=== PATIENT | female | born 1940 | race Caucasian/White ===

== ENCOUNTER 2016-06-15 15:53 | Emergency (ER) | payer BC ==
[~2016-06-15] VITALS: Wt 75.0 kg
[~2016-06-15 15:53] MED LIST: ASPI-535 PO; CARV6.25 PO; ESTR0.6256 PO; FLUTICASONE PROPIONATE NASAL; GUAI12009 PO; HYD25 PO; IBUP200C PO; LEVO88TA PO; POTA20TA96; [UNRECOGNIZED DRUG - CODE] PO; [UNRECOGNIZED DRUG - OTHER]
[2016-06-15 17:03] LABS: ADD SCAN DIFF NO
[2016-06-15 17:05] LABS: BASOPHIL # 0.1 10^3/ul (0.0-0.1); BASOPHILS % 0.4 % (0.0-2.0); EOSINOPHILS # 0.3 10^3/ul (0.0-0.5); EOSINOPHILS % 2.7 % (0.0-7.0); HEMATOCRIT 36.4 % (37.0-47.0); HEMOGLOBIN 11.8 g/dl (12.0-16.0); LYMPHOCYTES # 3.7 10^3/ul (0.8-2.9); MEAN CORPUSCULAR HEMOGLOBIN 28.6 pg (29.0-33.0); MEAN CORPUSCULAR HGB CONC 32.4 g/dl (32.0-37.0); MEAN CORPUSCULAR VOLUME 88.3 fl (82.0-101.0); MEAN PLATELET VOLUME 10.6 fl (7.4-10.4); MONOCYTE # 0.8 10^3/ul (0.3-0.9); MONOCYTES % 6.8 % (0.0-11.0); NEUTROPHIL # 6.6 10^3/ul (1.6-7.5); NEUTROPHILS % 57.8 % (39.0-77.0); PLATELET COUNT 257 10^3/UL (140-415); RED BLOOD COUNT 4.12 10^6/ul (4.20-5.40); RED CELL DISTRIBUTION WIDTH 13.3 % (11.5-14.5); WHITE BLOOD COUNT 11.5 10^3/ul (4.8-10.8)
[2016-06-15 17:14] LABS: PROTIME 13.2 Sec (12.2-14.2)
[2016-06-15 17:15] LABS: PARTIAL THROMBOPLASTIN TIME 23.7 Sec (25.0-35.0)
[2016-06-15 17:20] LABS: POTASSIUM 3.4 mmol/L (3.5-5.1)
[2016-06-15 17:22] LABS: CREATININE 1.07 mg/dl (0.44-1.00)
--- NOTE | 2016-06-15 17:22 | RADRPT ---
PROCEDURE: XR Chest. CLINICAL INDICATION: Headache and shortness of breath. TECHNIQUE: Single frontal view. COMPARISON: 10/17/2013. FINDINGS: There is mild atelectasis at the lung bases. The lungs are otherwise clear. The heart size is normal. There is no pleural effusion. There is no pneumothorax. IMPRESSION: 1. Mild atelectasis at the lung bases. 2. Otherwise normal chest x-ray. RPTAT: QQ .All Tariq MD, MD Date Time Electronically viewed and signed by .All Tariq MD, MD on 06/15/2016 17:21 .R/
[2016-06-15 17:23] LABS: CALCIUM 9.4 mg/dl (8.4-10.2)
--- NOTE | 2016-06-15 17:29 | ERA ---
ER Documentation Chief Complaint Date/Time DATE: 06/15/16 TIME: 17:25 Chief Complaint SUDDEN ONSET SHAHID. WITH DIZZINESS AT 1400, NO LOC. NO NEURO DEF. HPI 76-year-old female who presents the emergency room with multiple complaints. She states that around 2 PM she started to have a headache. She states that it was bandlike, bilateral, took about 1 hour to become maximal and has been 5 out of 10 and intermittent since. She states that she has history of headaches in the past. She has had more severe headaches than today's headache. However what is different about today's headache is that she has paresthesias to the bilateral upper extremities and feels lightheaded. She denies any dizziness such as room spinning sensation. No neck pain, no chest pain, no shortness of breath. She denies any fevers or chills. She states that she had her head on the trunk of a car 2 weeks ago but did not lose consciousness. No clumsiness, no ataxia. No slurred speech. ROS All systems reviewed and are negative except as per history of present illness. Medications Home Meds Active Scripts Acetamin/Butalbital/Caffeine* (Fioricet*) [id number] Tab, 1 TAB PO Q6H Y for PAIN, #30 TAB Prov:ESTEPHANIE AMIN MD 06/15/16 Reported Medications Fluticasone Propionate* (Fluticasone Propionate* Nasal) 50 Mcg/[place] - 16 Gm [place].susp, 1 SPRAY NASAL BID, #1 BOTTLE TO EACH NOSTRIL 06/15/16 Calcium Carbonate-Vitamin D3 (Calcium 600 + Vit D3) 1 Each Tablet, 1 TAB PO DAILY, TAB 06/15/16 Ascorbic Acid (Vitamin C) 500 Mg Tab, 1000 MG PO DAILY, TAB 06/15/16 Multivitamin with Minerals (Multivitamins with Minerals) 1 Each Tablet, 1 EACH PO DAILY, TAB 06/15/16 Diphenhydramine Hcl (Allergy) 25 Mg Tablet, 25 MG PO Q6H, TAB 06/15/16 Medroxyprogesterone Acetate* (Medroxyprogesterone Acetate*) 10 Mg Tablet, 10 MG PO DAILY, TAB 06/15/16 Valsartan-Hydrochlorothiazide (Valsartan-HCTZ) 80-12.5 Mg Tablet, 1 TAB PO DAILY , #30 TAB 06/15/16 Carvedilol* (Coreg*) 6.25 Mg Tablet, 6.25 MG PO BID 10/17/13 Aspirin Ec (Aspir 81) 81 Mg Tablet.dr, 81 MG PO DAILY 02/02/13 Levothyroxine Sodium* (Synthroid*) 88 Mcg Tablet, 88 MCG PO DAILY 02/02/13 Discontinued Reported Medications [Medroprogesteron] No Conflict Check 09/23/13 Potassium Chloride* (Potassium Chloride*) 20 Meq Tablet.er, 1 DAILY 09/23/13 [Fluticasone Propionate] 50 MCG SPRAY No Conflict Check, 50 MCG NASAL BID 02/02/13 Loratadine/Pseudoephedrine (ALLERCLEAR D-24HR ER TABLET) 1 Each Tab.er.24h, 1 EACH PO DAILY 02/02/13 Guaifenesin* (Mucinex* ER) 1,200 Mg/Bottle Tbmp.12hr, 1200 MG PO DAILY 02/02/13 Ibuprofen* (Ibuprofen*) 200 Mg Capsule, 400 MG PO DAILY 02/02/13 Hydrochlorothiazide* (Hydrochlorothiazide*) 25 Mg Tab, 25 MG PO DAILY 02/02/13 Estrogens,Conjugated* (Premarin*) 0.625 Mg Tablet, 0.625 MG PO DAILY 02/02/13 Allergies Allergies: Coded Allergies: Sulfa (Sulfonamide Antibiotics) (Verified Allergy, Severe, SWELLING, ) Penicillins (Verified Allergy, Intermediate, JUST GETS SICK, 06/15/16) codeine (Verified Allergy, Mild, DIZZINESS, 06/15/16) PMhx/Soc History of Surgery: Yes (L BIG TOE, ) Anesthesia Reaction: No Hx Neurological Disorder: No Hx Respiratory Disorders: No Hx Cardiac Disorders: Yes (HTN) Hx Psychiatric Problems: No Hx Miscellaneous Medical Probl: Yes (HYPOTHYROID, SEASONAL ALLERGIES) Hx Alcohol Use: No Hx Substance Use: No Hx Tobacco Use: No Smoking Status: Former smoker FmHx Family History: No diabetes Physical Exam Vitals Vital Signs Date Time Temp Pulse Resp B/P Pulse Ox O2 Delivery O2 Flow Rate FiO2 06/15/16 18:52 82 16 145/90 100 Room Air 06/15/16 17:58 83 21 135/91 100 Room Air 06/15/16 16:02 98.8 85 20 134/85 98 Physical Exam General: Well developed, well nourished, no acute distress Head: Normocephalic, atraumatic. Eyes: Pupils equally reactive, EOM intact ENT: Moist mucous membranes Neck: Supple, no lymphadenopathy Respiratory: Lungs clear bilaterally, no distress Cardiovascular: RRR, no murmurs, rubs, or gallops Abdominal: Soft, non-tender, non-distended, no peritoneal signs : Deferred MSK: No edema, no unilateral swelling, 5/5 strength Neurologic: Alert and oriented, moving all extremities, normal speech, no focal weakness, no cerebellar signs, normal rapid alternating movements, steady gait, no ataxia, NIH of 0 Skin: No rash Psych: Normal mood Result Diagram: 06/15/16 1650 06/15/16 1650 Results 24 hrs Laboratory Tests Test 06/15/16 16:50 Activated Partial Thromboplast Time 23.7Sec Anion Gap 17 Basophils # 0.110^3/ul Basophils % 0.4% Blood Urea Nitrogen 30mg/dl Calcium Level 9.4mg/dl Carbon Dioxide Level 26mmol/L Chloride Level 105mmol/L Creatinine 1.07mg/dl Eosinophils # 0.310^3/ul Eosinophils % 2.7% Glucose Level 95mg/dl Hematocrit 36.4% Hemoglobin 11.8g/dl INR International Normalized Ratio 1.00 Lymphocytes # 3.710^3/ul Lymphocytes % 32.0% Mean Corpuscular Hemoglobin 28.6pg Mean Corpuscular Hemoglobin Concent 32.4g/dl Mean Corpuscular Volume 88.3fl Mean Platelet Volume 10.6fl Monocytes # 0.810^3/ul Monocytes % 6.8% Neutrophils # 6.610^3/ul Neutrophils % 57.8% Nucleated Red Blood Cells # 0.010^3/ul Nucleated Red Blood Cells % 0.0/100WBC Platelet Count 73011^3/UL Potassium Level 3.4mmol/L Prothrombin Time 13.2Sec Prothrombin Time Ratio 1.0 Red Blood Count 4.1210^6/ul Red Cell Distribution Width 13.3% Sodium Level 145mmol/L Troponin I < 0.012ng/ml White Blood Count 11.510^3/ul Current Medications Medications (Trade) Dose Ordered Sig/Emilio Route PRN Reason Start Time Stop Time Status Last Admin Dose Admin Acetaminophen (Tylenol Tab) 650 mg ONCE ONCE PO 06/15/16 17:30 06/15/16 17:36 DC 06/15/16 17:58 IV Flush 10 ml 10 ml STK-MED ONCE .ROUTE 06/15/16 18:12 06/15/16 18:13 DC 06/15/16 18:39 Sodium Chloride 100 ml @ ud STK-MED ONCE .ROUTE 06/15/16 18:12 06/15/16 18:13 DC 06/15/16 18:39 Iohexol (Omnipaque) 100 ml @ ud STK-MED ONCE .ROUTE 06/15/16 18:12 06/15/16 18:13 DC 06/15/16 18:39 Procedures/MDM EKG, MONITORS, & DIAGNOSTIC IMAGING: EKG: I reviewed and interpreted a 12-lead EKG. Rhythm: Normal sinus rhythm Ectopy: None Intervals: No abnormalities ST segments: No elevations or depressions T waves: No contiguous inversions CT brain: No acute intracranial process CTA head and neck: No acute process LAB INTERPRETATION: Negative troponin MEDICAL DECISION MAKING: The patient presents with a headache and lightheadedness with paresthesias to bilateral upper extremities. Her presentation is unlikely to be arborist representative of acute subarachnoid hemorrhage such as aneurysmal bleed. The patient does have a history of headaches, this is not the worst headache of her life. She describes that the headache took at least 1 hour to become maximal. She has an otherwise nonfocal neurologic exam other than subjective paresthesias. However sensation is intact. The patient does describe a history of anxiety though she does not feel anxious currently. She denies any chest pain, no exertional symptoms. She does have a history of hypertension. Given the very low pretest probability for subarachnoid hemorrhage secondary to aneurysmal bleed I do not feel that lumbar puncture is necessary. I do however believe that CT imaging as well as CTA of the head and neck to rule out vertebrobasilar insufficiency would be reasonable. Normal vasculature would also make subarachnoid less likely. The patient continues to be well-appearing in the emergency department. ER COURSE: The patient now has resolution of symptoms. Her CT brain and CTA are normal. The patient is resting comfortably and performing word finds without difficulty. At this time I do not believe the patient has symptoms consistent with stroke. She does not have symptoms consistent with subarachnoid hemorrhage. Consider nonspecific headache versus anxiety. Outpatient follow- up with primary care physician recommended within 1 week. I discussed return precautions. Patient does not need hospitalization at this time. I kept the patient and/or family informed of laboratory and diagnostic imaging results throughout the emergency room course. DISPOSITION PLAN: We discussed follow up with the patient's primary care doctor within 24 to 48 hours as needed. We also discussed return to the emergency room for worsening symptoms or worsening condition. Outpatient referral: None required Discharge Medications: Fioricet Departure Diagnosis: Primary Impression: Paresthesia Additional Impression: Headache Qualified Code: G44.209 - Acute non intractable tension-type headache Condition: Stable ESTEPHANIE AMIN MD Jun 15, 2016 17:29
[2016-06-15] MEDS ORDERED: ACETAMINOPHEN 325 MG TAB PO ONE (17:30)
[2016-06-15] MEDS ORDERED: VALS1TAB74 PO (18:07)
[2016-06-15] MEDS ORDERED: MEDR10TA50 PO (18:08)
[2016-06-15] MEDS ORDERED: DIPH25TA55 PO (18:09)
[2016-06-15] MEDS ORDERED: MULT-105 PO (18:10)
[2016-06-15] MEDS ORDERED: ASC500 PO (18:11)
[2016-06-15] MEDS ORDERED: CALC-621 PO (18:12)
[2016-06-15] MEDS ORDERED: SOD CHLORIDE 0.9% 100 ML ONE (18:12)
[2016-06-15] MEDS ORDERED: IOHEXOL 100 ML ONE (18:12)
[2016-06-15] MEDS ORDERED: FLUT16SP17 NASAL (18:15)
--- NOTE | 2016-06-15 18:52 | RADRPT ---
PROCEDURE: CT Brain without contrast. CLINICAL INDICATION: Patient experiencing a headache. TECHNIQUE: A multiplanar CT of the brain was performed on a CT scanner utilizing axial imaging fro m the skull base through the vertex without IV contrast. The CTDIvol is 40.63 mGy and the DLP is 63 0.20 mGycm. One or more of the following dose reduction techniques were utilized: Automated exposu re control, adjustment of the mA and/or kV according to patient size, use of iterative reconstructio n technique. COMPARISON: None FINDINGS: No evidence of intracranial hemorrhage or abnormal extra-axial fluid collection. Minimal periventricular and subcortical white matter low attenuation compatible with sequelae of chr onic microvascular ischemic injury. The brain parenchyma is otherwise normal attenuation and morph ology with preservation of perez white differentiation. The ventricles and subarachnoid spaces are pr ominent compatible with mild central cerebral volume loss . The basal cisterns, posterior fossa contents, brainstem, craniocervical junction, orbits, pituitary axis, paranasal sinuses, mastoid air cells, and calvarium are unremarkable. IMPRESSION: 1. No intracranial hemorrhage or acute intracranial abnormality. 2. Mild chronic microvascular ischemic changes. 3. Mild central cerebral volume loss. RPTAT:AAJJ Physician Chaz Date Time Electronically viewed and signed by Physician Chaz on 06/15/2016 18:51 ALBARO/
--- NOTE | 2016-06-15 19:14 | RADRPT ---
AMENDMENT: 06/16/2016 8:09:08 AM Aakash Goff M.D. PROCEDURE: CTA head and neck CLINICAL INDICATION: Headache, dizziness, eval for VBI TECHNIQUE: The study was performed utilizing a multidetector CT scanner. Direct thin section ely grisel 0.625 mm axial sections were obtained through the head and neck after the uneventful administrat ion of 98 ml Omnipaque 350 nonionic intravenous contrast material. Coronal and sagittal as well as maximal intensity projection reformations were obtained. 3-D images were made. The images were revi ewed on a PACS workstation. The total 20.3 mGy and the 744.03 mGy-cm. One or more of the following d ose reduction techniques were utilized: Automated exposure control, adjustment of the mA and/or kV according to patient size, use of iterative reconstruction technique. COMPARISON: No prior studies are available for comparison. FINDINGS: CTA NECK: The origins of the great vessels off the aortic arch are patent and normal in caliber without signif icant stenosis. Atherosclerotic aortic calcification noted. The common carotid arteries The right internal carotid artery and bold are normal in course and caliber with punctate calcified atherosclerotic plaque or hemodynamically significant stenosis. The external carotid artery and its branches are patent and normal in caliber The left internal carotid artery bulb are normal in course and caliber with punctate calcified ather osclerotic plaque a hemodynamically significant stenosis. The external carotid artery and its branch es are patent and normal in caliber. The vertebral arteries are also patent and normal in caliber bilaterally. There is no evidence of a hemodynamically significant stenosis or dissection. CTA BRAIN: Precontrast CT images of the brain demonstrate the brain parenchyma to the normal attenuation morpho logy with preservation of perez white differentiation and age appropriate size of the ventricles and subarachnoid spaces. No intracranial hemorrhage or abnormal extra-axial fluid collection. Unremarkab le posterior fossa contents, orbits, brainstem, calvarium, paranasal sinuses, mastoid air cells. No rmal pituitary axis. The internal carotid arteries are patent and normal in caliber without significant atherosclerotic p laque. The vessels of the anterior posterior circulation are patent and demonstrate normal course and calib er without irregularity, focal stenosis or occlusion. The anterior posterior communicating arteries are intact. The basilar artery is patent and normal in caliber. The posterior communicating arteries are patent and normal in caliber. The vertebral arteries are codominant, patent and normal in caliber. No aneurysm or vascular malformation is identified. The dural venous sinuses , cortical, and intrace rebral veins are patent and normal in caliber. IMPRESSION: 1. Normal CT angiogram of the extracranial carotid vasculature. 2. Normal CT angiogram of the neck vessels. RPTAT:AAJJ Kameron Goff Physician Date Time Electronically viewed and signed by Kameron Goff Physician on 06/16/2016 08:10 ALBARO/
[2016-06-15] MEDS ORDERED: FIORICET PO (19:38)
[2016-06-15 20:04] VITALS: BP 161/73; PULSE 74; RESP 17
== END 2016-06-15 19:55 | disposition home or self-care (01) ==
LOC: E/R 15:53
DX: R20.2 Paresthesia of skin (principal); G44.209 Tension-type headache, unspecified, not intractable; I10 Essential (primary) hypertension; E03.9 Hypothyroidism, unspecified; R06.02 Shortness of breath; Z79.82 Long term (current) use of aspirin; Z87.891 Personal history of nicotine dependence
CPT/HCPCS: 36415; 70450; 70496; 70498; 71010; 80048; 84484; 85025; 85610; 85730; 93005; 99285; Q9967

== ENCOUNTER 2017-01-01 18:08 | Emergency (ER) | payer BC ==
[~2017-01-01] VITALS: Ht 162.6 cm; Wt 72.5 kg
[~2017-01-01 18:08] MED LIST changes: +ASC500 PO; +CALC-621 PO; +DIPH25TA55 PO; -ESTR0.6256 PO; +FIORICET PO; +FLUT16SP17 NASAL; -FLUTICASONE PROPIONATE NASAL; -GUAI12009 PO; -HYD25 PO; -IBUP200C PO; +MEDR10TA50 PO; +MULT-105 PO; -POTA20TA96; +VALS1TAB74 PO; -[UNRECOGNIZED DRUG - CODE] PO; -[UNRECOGNIZED DRUG - OTHER]
[2017-01-01 18:37] VITALS: Ht 162.6 cm; Wt 72.5 kg
[2017-01-01] MEDS ORDERED: LORA1TAB PO (20:20)
[2017-01-01] MEDS ORDERED: LORAZEPAM 1 MG TAB PO ONE (20:30)
[2017-01-01 21:04] VITALS: BP 144/80; PULSE 88; RESP 21
--- NOTE | 2017-01-01 23:06 | ERD ---
ER Documentation Chief Complaint Date/Time DATE: 01/01/17 TIME: 23:05 Chief Complaint sp nasal surgery- sinus surgery yewterday, unable to breath from nose area HPI Patient is a 76-year-old female with hypertension who presents with congestion. The patient had nasal surgery yesterday and had a sinus endoscopy done. She says "I cannot breathe through my nose". She said that she had a panic attack because she could not breathe through her nose. She called her ear nose and throat doctor who told her to take Benadryl but she said that she did not take it and came to the ER. Upon review of old medical records this is the patient' s sixth visit to the ER since 2012. The ENT doctor is Dr. Forrest. ROS All systems reviewed and are negative except as per history of present illness. Medications Home Meds Active Scripts Lorazepam* (Lorazepam*) 1 Mg Tablet, 1 MG PO Q8, #6 TAB Prov:KIMBERLY CRESPO MD 01/01/17 Acetamin/Butalbital/Caffeine* (Fioricet*) [id number] Tab, 1 TAB PO Q6H Y for PAIN, #30 TAB Prov:ESTEPHANIE AMIN MD 06/15/16 Reported Medications Fluticasone Propionate* (Fluticasone Propionate* Nasal) 50 Mcg/[place] - 16 Gm [place].susp, 1 SPRAY NASAL BID, #1 BOTTLE TO EACH NOSTRIL 06/15/16 Calcium Carbonate-Vitamin D3 (Calcium 600 + Vit D3) 1 Each Tablet, 1 TAB PO DAILY, TAB 06/15/16 Ascorbic Acid (Vitamin C) 500 Mg Tab, 1000 MG PO DAILY, TAB 06/15/16 Multivitamin with Minerals (Multivitamins with Minerals) 1 Each Tablet, 1 EACH PO DAILY, TAB 06/15/16 Diphenhydramine Hcl (Allergy) 25 Mg Tablet, 25 MG PO Q6H, TAB 06/15/16 Medroxyprogesterone Acetate* (Medroxyprogesterone Acetate*) 10 Mg Tablet, 10 MG PO DAILY, TAB 06/15/16 Valsartan-Hydrochlorothiazide (Valsartan-HCTZ) 80-12.5 Mg Tablet, 1 TAB PO DAILY , #30 TAB 06/15/16 Carvedilol* (Coreg*) 6.25 Mg Tablet, 6.25 MG PO BID 10/17/13 Aspirin Ec (Aspir 81) 81 Mg Tablet.dr, 81 MG PO DAILY 02/02/13 Levothyroxine Sodium* (Synthroid*) 88 Mcg Tablet, 88 MCG PO DAILY 02/02/13 Allergies Allergies: Coded Allergies: Sulfa (Sulfonamide Antibiotics) (Verified Allergy, Severe, SWELLING, ) Penicillins (Verified Allergy, Intermediate, JUST GETS SICK, 06/15/16) codeine (Verified Allergy, Mild, DIZZINESS, 06/15/16) PMhx/Soc History of Surgery: Yes (L BIG TOE, NASAL SINUS SX 2016) Anesthesia Reaction: No Hx Neurological Disorder: No Hx Respiratory Disorders: No Hx Cardiac Disorders: Yes (HTN) Hx Psychiatric Problems: No Hx Miscellaneous Medical Probl: Yes (HYPOTHYROID, SEASONAL ALLERGIES) Hx Alcohol Use: No Hx Substance Use: No Hx Tobacco Use: No Smoking Status: Never smoker FmHx Family History: No diabetes Physical Exam Vitals Vital Signs Date Time Temp Pulse Resp B/P Pulse Ox O2 Delivery O2 Flow Rate FiO2 01/01/17 21:04 88 21 144/80 98 Room Air 01/01/17 18:37 97.8 84 20 145/83 97 Physical Exam Const: No acute distress Head: Atraumatic Eyes: Normal Conjunctiva ENT: Dried blood inside the bilateral nares Neck: Full range of motion..~ No meningismus. Resp: Clear to auscultation bilaterally Cardio: Regular rate and rhythm, no murmurs Abd: Soft, non tender, non distended. Normal bowel sounds Skin: No petechiae or rashes Back: No midline or flank tenderness Ext: No cyanosis, or edema Neur: Awake and alert Psych: Normal Mood and Affect Results 24 hrs Current Medications Medications (Trade) Dose Ordered Sig/Emilio Route PRN Reason Start Time Stop Time Status Last Admin Dose Admin Lorazepam (Ativan) 1 mg ONCE ONCE PO 01/01/17 20:30 01/01/17 20:31 DC 01/01/17 21:25 Procedures/MDM Patient is a 76-year-old female presents with nasal congestion. She has dried blood in the bilateral nares. I do not believe patient requires further workup or treatment at this time. I believe outpatient management is appropriate. This would be a common course of postsurgical care. She can return for any worsening symptoms. She should follow-up with ENT at the scheduled appointment. Departure Diagnosis: Primary Impression: Postoperative complication Surgical complication system/body Area: respiratory system Surgical complication type: unspecified Procedure type: respiratory system Qualified Code: J95.89 - Postoperative surgical complication involving respiratory system associated with respiratory system procedure, unspecified complication Condition: Fair Patient Instructions: Post Op Wound Check, General Referrals: REX ACOSTA MD (PCP) Additional Instructions: SPECIALIST: YOU HAVE A MEDICAL CONDITION WHICH REQUIRES YOU TO SEE A SPECIALIST WITHIN THE NEXT 1-2 DAYS. PLEASE FOLLOW UP WITH YOUR PRIMARY PHYSICIAN FOR REFFERAL.IF YOU DO NOT HAVE A PRIMARY CARE PHYSICIAN AND/OR YOU CAN NOT AFFORD TO SEE A PHYSICIAN THE FOLLOWING RESOURCES HAVE BEEN SUPPLIED TO YOU. IT IS YOUR RESPONSIBILITY TO BE SEEN BY THE SPECIALIST KIMBERLY CRESPO MD Jan 01, 2017 23:06
== END 2017-01-01 21:25 | disposition home or self-care (01) ==
LOC: E/R 18:08
DX: J95.89 Other postprocedural complications and disorders of respiratory system, not elsewhere classified (principal); I10 Essential (primary) hypertension; E03.9 Hypothyroidism, unspecified; Z79.82 Long term (current) use of aspirin
CPT/HCPCS: 99283

== ENCOUNTER 2017-01-03 13:29 | Inpatient (IN) | payer BC ==
[~2017-01-03] VITALS: Ht 152.4 cm; Wt 74.8 kg
[~2017-01-03 13:29] MED LIST changes: +LORA1TAB PO
[2017-01-03] MEDS ORDERED: ONDANSETRON 4 MG INJ IV STA (14:06)
[2017-01-03] MEDS ORDERED: SOD CHLORIDE 0.9% 1,000 ML IV STA (14:06)
[2017-01-03] MEDS ORDERED: HYDROmorphONE 1 MG/ML SYG IV STA (14:06)
[2017-01-03 15:12] LABS: ABNORMAL IP MESSAGE 1; BASOPHILS % 0.2 % (0.0-2.0); EOSINOPHILS # 0.2 10^3/ul (0.0-0.5); EOSINOPHILS % 0.7 % (0.0-7.0); HEMATOCRIT 35.6 % (37.0-47.0); HEMOGLOBIN 11.7 g/dl (12.0-16.0); LYMPHOCYTES # 3.6 10^3/ul (0.8-2.9); MEAN CORPUSCULAR HEMOGLOBIN 28.8 pg (29.0-33.0); MEAN CORPUSCULAR HGB CONC 32.9 g/dl (32.0-37.0); MEAN CORPUSCULAR VOLUME 87.7 fl (82.0-101.0); MEAN PLATELET VOLUME 11.1 fl (7.4-10.4); MONOCYTE # 1.5 10^3/ul (0.3-0.9); MONOCYTES % 7.5 % (0.0-11.0); NEUTROPHIL # 14.8 10^3/ul (1.6-7.5); NEUTROPHILS % 73.2 % (39.0-77.0); PLATELET COUNT 203 10^3/UL (140-415); RED BLOOD COUNT 4.06 10^6/ul (4.20-5.40); RED CELL DISTRIBUTION WIDTH 13.2 % (11.5-14.5); WHITE BLOOD COUNT 20.3 10^3/ul (4.8-10.8)
[2017-01-03 15:16] LABS: POSITIVE DIFF @See below
[2017-01-03 15:39] LABS: ALBUMIN 3.6 g/dl (3.3-4.9); ALBUMIN/GLOBULIN RATIO 1.16; BILIRUBIN,INDIRECT 0.6 mg/dl (0-1.1); BILIRUBIN,TOTAL 0.6 mg/dl (0.2-1.3); CALCIUM 8.9 mg/dl (8.4-10.2); CREATININE 1.03 mg/dl (0.44-1.00); POTASSIUM 3.5 mmol/L (3.5-5.1); TOTAL PROTEIN 6.7 g/dl (6.1-8.1)
[2017-01-03] MEDS ORDERED: IOHEXOL 300MG/ML 150 ML BTL ONE (15:56)
[2017-01-03] MEDS ORDERED: SOD CHLORIDE 0.9% 100 ML ONE (15:56)
--- NOTE | 2017-01-03 16:17 | RADRPT ---
PROCEDURE: CT abdomen and pelvis with contrast. CLINICAL INDICATION: Left lower quadrant pain bloody diarrhea. TECHNIQUE: CT scan of the abdomen and pelvis without oral contrast was performed and is reconstruc martha at 2.5 mm contiguous axial intervals from the dome of the diaphragm to the inferior pubic rami.. The patient was scanned without intravenous contrast. Sagittal and coronal reformatted images wer e obtained from the axial source images. The calculated radiation dose measures 743 mGy centimeters. The CTDI measures 14 mGy. Individualized dose optimization technique was used for the performance of this exam. This included 1. Automated exposure control. 2. Adjustment of the mA and / or kV according to the patient's size. 3. Use of iterative reconstructed technique. COMPARISON: None. FINDINGS: The lung bases are clear of any infiltrate or nodule. No effusion is seen. There are coronary arter y calcifications. The liver is of normal size, contour and attenuation with no mass or ductal dilatation. No gallston es are visualized. No splenic, adrenal or pancreatic abnormalities present. Kidneys are of normal size and contour. No hydronephrosis, calculus or masses seen. Ureters are o f normal course and caliber with no stone. No bladder mass or stone is present. Atrophic postmenopa usal uterus and ovaries are normal. There is no aneurysm. There are vascular calcifications. No adenopathy is present. No bowel mass or obstruction is present. There is concentric thickening of the wall of the distal descending colon and the transverse colon. There is no stranding of the surrounding fat. The append ix is normal. No phlegmon, ascites or pneumoperitoneum is visualized. The osseous structures are intact. IMPRESSION: No evidence of urolithiasis, obstructive uropathy, diverticulitis or appendicitis. Concentric thickening wall of distal descending colon and sigmoid. Rule out focal colitis. Vascular calcifications. .Slava Tran MD, MD Date Time Electronically viewed and signed by .Slava Tran MD, MD on 01/03/2017 16:17 .A/
[2017-01-03 16:33] VITALS: TEMP 98
[2017-01-03] MEDS ORDERED: metroNIDAZOLE 500 MG/NS (PMX) 100 ML IVPB ONE (18:00)
[2017-01-03] MEDS ORDERED: CIPROFLOXACIN 400MG/D5W 200 ML IVPB ONE (18:00)
--- NOTE | 2017-01-03 18:15 | ERA ---
ER Documentation Chief Complaint Date/Time DATE: 01/03/17 TIME: 18:09 Chief Complaint diarrhea since last PM; bloody rectum HPI This is a 76-year-old female complains of pain in the left lower quadrant with bloody diarrhea for the past 3 days. No fever. The pain described as crampy and worse with bowel movement. She also complains of some anal rectal pain as well. Denies any fever she does have some nausea but no vomiting. Pain is nonradiating. Pain is moderate in severity ROS All systems reviewed and are negative except as per history of present illness. Medications Home Meds Active Scripts Lorazepam* (Lorazepam*) 1 Mg Tablet, 1 MG PO Q8, #6 TAB Prov:KIMBERLY CRESPO MD 01/01/17 Acetamin/Butalbital/Caffeine* (Fioricet*) [id number] Tab, 1 TAB PO Q6H Y for PAIN, #30 TAB Prov:ESTEPHANIE AMIN MD 06/15/16 Reported Medications Fluticasone Propionate* (Fluticasone Propionate* Nasal) 50 Mcg/[place] - 16 Gm [place].susp, 1 SPRAY NASAL BID, #1 BOTTLE TO EACH NOSTRIL 06/15/16 Calcium Carbonate-Vitamin D3 (Calcium 600 + Vit D3) 1 Each Tablet, 1 TAB PO DAILY, TAB 06/15/16 Ascorbic Acid (Vitamin C) 500 Mg Tab, 1000 MG PO DAILY, TAB 06/15/16 Multivitamin with Minerals (Multivitamins with Minerals) 1 Each Tablet, 1 EACH PO DAILY, TAB 06/15/16 Diphenhydramine Hcl (Allergy) 25 Mg Tablet, 25 MG PO Q6H, TAB 06/15/16 Medroxyprogesterone Acetate* (Medroxyprogesterone Acetate*) 10 Mg Tablet, 10 MG PO DAILY, TAB 06/15/16 Valsartan-Hydrochlorothiazide (Valsartan-HCTZ) 80-12.5 Mg Tablet, 1 TAB PO DAILY , #30 TAB 06/15/16 Carvedilol* (Coreg*) 6.25 Mg Tablet, 6.25 MG PO BID 10/17/13 Aspirin Ec (Aspir 81) 81 Mg Tablet.dr, 81 MG PO DAILY 02/02/13 Levothyroxine Sodium* (Synthroid*) 88 Mcg Tablet, 88 MCG PO DAILY 02/02/13 Allergies Allergies: Coded Allergies: Sulfa (Sulfonamide Antibiotics) (Verified Allergy, Severe, SWELLING, ) Penicillins (Verified Allergy, Intermediate, JUST GETS SICK, 06/15/16) codeine (Verified Allergy, Mild, DIZZINESS, 06/15/16) PMhx/Soc History of Surgery: Yes (L BIG TOE, NASAL SINUS SX 2017) Anesthesia Reaction: No Hx Neurological Disorder: No Hx Respiratory Disorders: No Hx Cardiac Disorders: Yes (HTN) Hx Psychiatric Problems: No Hx Miscellaneous Medical Probl: Yes (HYPOTHYROID, SEASONAL ALLERGIES) Hx Alcohol Use: No Hx Substance Use: No Hx Tobacco Use: No Smoking Status: Never smoker FmHx Family History: No coronary disease Physical Exam Vitals Vital Signs Date Time Temp Pulse Resp B/P Pulse Ox O2 Delivery O2 Flow Rate FiO2 01/03/17 16:33 98.0 68 20 119/52 99 Room Air 01/03/17 15:15 92 120/90 01/03/17 14:40 98.5 97 20 84/74 98 Room Air 01/03/17 13:32 98.6 100 16 128/60 100 Physical Exam Const: Well-developed, well-nourished Head: Atraumatic, normocephalic Eyes: Normal Conjunctiva, PERRLA, EOMI, normal sclera, no nystagmus ENT: Normal External Ears, Nose and Mouth, moist mucus membranes. Neck: Full range of motion. No meningismus, no lymphadenopathy. Resp: Clear to auscultation bilaterally, no wheezing, rhonchi, rales Cardio: Regular rate and rhythm, no murmurs, S1 S2 present Abd: Soft, moderate left lower quadrant tenderness non distended. Normal bowel sounds, no guarding or rebound, no pulsitile abdominal masses or bruits Skin: No petechiae or rashes, no ecchymosis , no maculopapular rash Back: No midline or flank tenderness Ext: No cyanosis, or edema, FROM x 4, normal inspection, neurovascularly intact x 4 Neur: Awake and alert, STR 5/5 x 4, sensation intact x 4, no focal findings, cerebellum intact Psych: Normal Mood and Affect Result Diagram: 01/03/17 1430 01/03/17 1430 Results 24 hrs Laboratory Tests Test 01/03/17 14:30 White Blood Count 20.310^3/ul Red Blood Count 4.0610^6/ul Hemoglobin 11.7g/dl Hematocrit 35.6% Mean Corpuscular Volume 87.7fl Mean Corpuscular Hemoglobin 28.8pg Mean Corpuscular Hemoglobin Concent 32.9g/dl Red Cell Distribution Width 13.2% Platelet Count 15494^3/UL Mean Platelet Volume 11.1fl Neutrophils % 73.2% Lymphocytes % 18.0% Monocytes % 7.5% Eosinophils % 0.7% Basophils % 0.2% Nucleated Red Blood Cells % 0.0/100WBC Neutrophils # 14.810^3/ul Lymphocytes # 3.610^3/ul Monocytes # 1.510^3/ul Eosinophils # 0.210^3/ul Basophils # 0.010^3/ul Nucleated Red Blood Cells # 0.010^3/ul Sodium Level 138mmol/L Potassium Level 3.5mmol/L Chloride Level 103mmol/L Carbon Dioxide Level 28mmol/L Anion Gap 11 Blood Urea Nitrogen 19mg/dl Creatinine 1.03mg/dl Glucose Level 119mg/dl Calcium Level 8.9mg/dl Total Bilirubin 0.6mg/dl Direct Bilirubin 0.00mg/dl Indirect Bilirubin 0.6mg/dl Aspartate Amino Transf (AST/SGOT) 46IU/L Alanine Aminotransferase (ALT/SGPT) 40IU/L Alkaline Phosphatase 79IU/L Total Protein 6.7g/dl Albumin 3.6g/dl Globulin 3.10g/dl Albumin/Globulin Ratio 1.16 Lipase 110U/L Current Medications Medications (Trade) Dose Ordered Sig/Emilio Route PRN Reason Start Time Stop Time Status Last Admin Dose Admin Sodium Chloride (NS) 1,000 ml @ 1,000 mls/hr Q1H STAT IV 01/03/17 14:06 01/03/17 15:05 DC 01/03/17 14:34 Hydromorphone HCl (Dilaudid) 1 mg ONCE STAT IV 01/03/17 14:06 01/03/17 14:08 DC 01/03/17 15:14 Ondansetron HCl (Zofran Inj) 4 mg ONCE STAT IV 01/03/17 14:06 01/03/17 14:08 DC 01/03/17 15:13 IV Flush 10 ml 10 ml STK-MED ONCE .ROUTE 01/03/17 15:56 01/03/17 15:57 DC 01/03/17 16:07 Sodium Chloride (NS) 100 ml @ ud STK-MED ONCE .ROUTE 01/03/17 15:56 01/03/17 15:57 DC 01/03/17 16:07 Iohexol 150 ml 150 ml STK-MED ONCE .ROUTE 01/03/17 15:56 01/03/17 15:57 DC 01/03/17 16:07 Ciprofloxacin/ Dextrose 200 ml @ 200 mls/hr ONCE ONCE IVPB 01/03/17 18:00 01/03/17 18:59 Metronidazole (Flagyl 500 Mg (Pmx)) 100 ml @ 100 mls/hr ONCE ONCE IVPB 01/03/17 18:00 01/03/17 18:59 Procedures/MDM PROCEDURE: CT abdomen and pelvis with contrast. CLINICAL INDICATION: Left lower quadrant pain bloody diarrhea. TECHNIQUE: CT scan of the abdomen and pelvis without oral contrast was performed and is reconstructed at 2.5 mm contiguous axial intervals from the dome of the diaphragm to the inferior pubic rami.. The patient was scanned without intravenous contrast. Sagittal and coronal reformatted images were obtained from the axial source images. The calculated radiation dose measures 743 mGy centimeters. The CTDI measures 14 mGy. Individualized dose optimization technique was used for the performance of this exam. This included 1. Automated exposure control. 2. Adjustment of the mA and / or kV according to the patient's size. 3. Use of iterative reconstructed technique. COMPARISON: None. FINDINGS: The lung bases are clear of any infiltrate or nodule. No effusion is seen. There are coronary artery calcifications. The liver is of normal size, contour and attenuation with no mass or ductal dilatation. No gallstones are visualized. No splenic, adrenal or pancreatic abnormalities present. Kidneys are of normal size and contour. No hydronephrosis, calculus or masses seen. Ureters are of normal course and caliber with no stone. No bladder mass or stone is present. Atrophic postmenopausal uterus and ovaries are normal. There is no aneurysm. There are vascular calcifications. No adenopathy is present. No bowel mass or obstruction is present. There is concentric thickening of the wall of the distal descending colon and the transverse colon. There is no stranding of the surrounding fat. The appendix is normal. No phlegmon, ascites or pneumoperitoneum is visualized. The osseous structures are intact. IMPRESSION: No evidence of urolithiasis, obstructive uropathy, diverticulitis or appendicitis. Concentric thickening wall of distal descending colon and sigmoid. Rule out focal colitis. Vascular calcifications. .Slava Tran MD, MD Date Time Electronically viewed and signed by .Slava Tran MD, MD on 01/03/2017 16: 17 .A/ CC: IMAN DOYLE DO Patient has elevated white blood count of 20.3. Will admit to the hospital for IV antibiotics. We will give IV Cipro and Flagyl here Departure Diagnosis: Primary Impression: Colitis Condition: Stable IMAN DOYLE DO Jan 03, 2017 18:15
[2017-01-03] MEDS ORDERED: SOD CHLORIDE 0.9% 1,000 ML IV SCH (18:21)
[2017-01-03] MEDS ORDERED: ACETAMINOPHEN 325 MG TAB PO PRN (18:30)
[2017-01-03] MEDS ORDERED: ACET/BUTAL/CAFF TAB PO PRN (18:30)
[2017-01-03] MEDS ORDERED: MAGNESIUM HYDROXIDE 30ML CUP PO PRN (18:30)
[2017-01-03] MEDS ORDERED: BISACODYL 10 MG SUPP PR PRN (18:30)
[2017-01-03] MEDS ORDERED: ONDANSETRON 4 MG INJ IV PRN ×2 (18:30)
[2017-01-03] MEDS ORDERED: DOCUSATE SODIUM 100 MG CAP PO PRN (18:30)
[2017-01-03] MEDS ORDERED: NACL 0.9% 3 ML SYG IV SCH (18:30)
[2017-01-03] MEDS ORDERED: HYDROmorphONE 1 MG/ML SYG IV PRN (18:30)
[2017-01-03 19:15] VITALS: PULSE 71
[2017-01-03] MEDS: FAMOTIDINE 20 MG TAB PO SCH (21:18)
[2017-01-03] MEDS: metroNIDAZOLE 500 MG TAB PO SCH (21:18)
[2017-01-03 21:20] VITALS: BP 122/57; RESP 18
[2017-01-03 21:42] VITALS: Ht 152.4 cm; Wt 74.8 kg
[2017-01-03] MEDS: FLUTICASONE 0.05% 16 GM NAS SPRAY NASAL SCH (22:51)
[2017-01-03] MEDS: D5-NS + KCL 20 MEQ 1,000 ML IV SCH (22:51)
[2017-01-04 02:18] VITALS: BP 123/60; RESP 18
[2017-01-04 05:31] LABS: BASOPHILS % 0.2 % (0.0-2.0); EOSINOPHILS # 0.2 10^3/ul (0.0-0.5); EOSINOPHILS % 1.2 % (0.0-7.0); HEMATOCRIT 32.9 % (37.0-47.0); HEMOGLOBIN 10.6 g/dl (12.0-16.0); LYMPHOCYTES # 2.2 10^3/ul (0.8-2.9); LYMPHOCYTES % 11.4 % (15.0-51.0); MEAN CORPUSCULAR HEMOGLOBIN 28.4 pg (29.0-33.0); MEAN CORPUSCULAR HGB CONC 32.2 g/dl (32.0-37.0); MEAN CORPUSCULAR VOLUME 88.2 fl (82.0-101.0); MEAN PLATELET VOLUME 11.7 fl (7.4-10.4); MONOCYTE # 1.5 10^3/ul (0.3-0.9); MONOCYTES % 7.6 % (0.0-11.0); NEUTROPHIL # 15.2 10^3/ul (1.6-7.5); NEUTROPHILS % 79.1 % (39.0-77.0); PLATELET COUNT 203 10^3/UL (140-415); RED BLOOD COUNT 3.73 10^6/ul (4.20-5.40); RED CELL DISTRIBUTION WIDTH 13.4 % (11.5-14.5); WHITE BLOOD COUNT 19.2 10^3/ul (4.8-10.8)
[2017-01-04 05:55] LABS: ALBUMIN 3.1 g/dl (3.3-4.9); ALBUMIN/GLOBULIN RATIO 0.91; BILIRUBIN,INDIRECT 0.3 mg/dl (0-1.1); BILIRUBIN,TOTAL 0.3 mg/dl (0.2-1.3); CALCIUM 8.5 mg/dl (8.4-10.2); CREATININE 0.98 mg/dl (0.44-1.00); MAGNESIUM 1.5 mg/dl (1.7-2.5); PHOSPHORUS 2.3 mg/dl (2.5-4.9); POTASSIUM 3.5 mmol/L (3.5-5.1); TOTAL PROTEIN 6.5 g/dl (6.1-8.1)
[2017-01-04] MEDS: metroNIDAZOLE 500 MG TAB PO SCH ×3 (06:11→22:12)
[2017-01-04 08:56] VITALS: BP 135/60; RESP 20
[2017-01-04] MEDS: LEVOTHYROXINE 88 MCG TAB PO SCH (09:05)
[2017-01-04] MEDS: ASCORBIC ACID 500 MG TAB PO SCH (09:05)
[2017-01-04] MEDS: CIPROFLOXACIN 400MG/D5W 200 ML IVPB SCH ×2 (09:05→20:57)
[2017-01-04] MEDS: FLUTICASONE 0.05% 16 GM NAS SPRAY NASAL SCH ×2 (09:07→20:58)
[2017-01-04] MEDS: D5-NS + KCL 20 MEQ 1,000 ML IV SCH ×3 (11:05→23:48)
--- NOTE | 2017-01-04 11:24 | HP ---
Date/Time of Note Date/Time of Note DATE: 01/04/17 TIME: 11:10 Assessment/Plan VTE Prophylaxis VTE Prophylaxis Intervention: SCD's Lines/Catheters IV [facility] Peripheral IV Assessment/Plan Assessment/Plan 76-year-old female with: 1. Acute colitis, sigmoid and descending colon per CAT scan finding and symptoms on presentation, patient tolerating clear liquids, symptoms much improved this morning, will advance to full liquid, continue ciprofloxacin IV and Flagyl p.o. Stool studies pending however patient has not had a bowel movement since admission. Scant bright red blood per rectum likely secondary to hemorrhoids. Hemoglobin stable. 2. Hypertension: Continue home medications as tolerated 3. Hypothyroidism: Check thyroid function, continue Synthroid 4. Chronic sinusitis, status post ENT procedure, continue current medications Prophylaxis: SCDs for DVT prophylaxis, Pepcid for GI prophylaxis Disposition: Continue current antibiotics, monitor laboratory data, monitor hematochezia, GI consult if needed otherwise follow-up as an outpatient HPI/ROS Admit Date/Time Admit Date/Time Jan 03, 2017 at 18:22 Hx of Present Illness Chief complaint: Abdominal pain History of presenting illness: This is a 76-year-old female with history of hemorrhoidal bleeding in the past, also history of colon polyps, status post colonoscopy 4 years ago with benign polyps according to the patient, hypertension, hypothyroidism, recent ENT procedure for her sinuses who presented to the emergency department with acute onset of severe lower abdominal pain, nausea, vomiting, diarrhea, chills for 24 hours. Patient was found to have white blood cell count around 20K, CAT scan of the abdomen and pelvis seems to be showing colitis in the descending and sigmoid colon with some thickening seen in that area. Patient was started on ciprofloxacin and Flagyl, she has not had any diarrhea since admission therefore stool studies are pending. This morning she denies any nausea or vomiting. She still having bright red blood per rectum scant amount per nurse, she believes is probably due to her hemorrhoids. She also reports rectal pain with scant bleeding all consistent with hemorrhoids. Hemoglobin is stable. White blood cell count is more or less the same this morning. She is tolerating clear liquids, she will be advanced to full liquid. She is on medical surgical bed. Patient denies any chest pain, shortness of breath, genitourinary complaints, neurological complaints. She remains afebrile. ROS Constitutional: chills, nausea Gastrointestinal: blood, diarrhea, nausea, vomiting Genitourinary: no complaints Musculoskeletal: no complaints Skin: no complaints Psychological: no complaints PMH/Family/Social Past Medical History Hypertension Hypothyroidism Chronic sinusitis status post ENT procedure last week Hemorrhoids per history Past Surgical History Status post bilateral shoulder arthroscopic surgeries Status post ENT procedure last week to clean up her sinuses Status post nose surgery 10 years ago Family History Significant Family History: no pertinent family hx Social History Alcohol Use: none Smoking Status: Former smoker Drug Use: none Exam/Review of Systems Vital Signs Vitals Vital Signs Date Time Temp Pulse Resp B/P Pulse Ox O2 Delivery O2 Flow Rate FiO2 01/04/17 08:56 99.0 88 20 135/60 99 01/03/17 19:15 Nasal Cannula 2.0 Intake and Output 01/03/17 01/03/17 01/04/17 15:00 23:00 07:00 Intake Total 100 ml 1150 ml Balance 100 ml 1150 ml Exam Constitutional: alert, oriented, well developed Respiratory: clear to auscultation, normal air movement Cardiovascular: nl pulses, regular rate and rhythm Gastrointestinal: soft, tender (Mild discomfort lower abdomen, much improved) Musculoskeletal: nl extremities to inspection, nl gait and stance Extremities: normal pulses Neurological: TIP TESTER II-XII intact, nl mental status, nl speech, nl strength Labs Result Diagram: 01/04/1743901/04/17439 Medications Medications Current Medications Ciprofloxacin/ Dextrose (Cipro Ivpb) 200 ml @ 200 mls/hr Q12 IVPB Last administered on 01/04/17 09:05; Admin Dose 200 MLS/HR; Start 01/04/17 at 09:00 Metronidazole (Flagyl) 500 mg Q8 PO Last administered on 01/04/17 06:11; Admin Dose 500 MG; Start 01/03/17 at 22:00 Acetaminophen/ Butalbital/ Caffeine (Fioricet) 1 tab Q6H PRN PO PAIN; Start at 18:30 Ascorbic Acid (Vitamin C) 1,000 mg DAILY PO Last administered on 01/04/17 09: 05; Admin Dose 1,000 MG; Start 01/04/17 at 09:00 Carvedilol (Coreg) 6.25 mg BID PO Last administered on 10/2/17at 09:06; Admin Dose 6.25 MG; Start 01/03/17 at 21:00 Fluticasone Propionate (Flonase 0.05% Nasal) 1 spray BID NASAL Last administered on 01/04/17 09:07; Admin Dose 1 SPRAY; Start 01/03/17 at 21:00 Levothyroxine Sodium (Synthroid) 88 mcg DAILY PO Last administered on 09:05; Admin Dose 88 MCG; Start 01/04/17 at 09:00 Ondansetron HCl (Zofran Inj) 4 mg Q6H PRN IV NAUSEA AND/OR VOMITING; Start 01/03/17 at 18:30 Acetaminophen (Tylenol Tab) 650 mg Q6H PRN PO PAIN LEVEL 1-3 OR FEVER; Start 01/03/17 at 18:30 Hydromorphone HCl (Dilaudid) 0.5 mg Q4H PRN IV SEVERE PAIN LEVEL 7-10; Start 01/03/17 at 18:30 Docusate Sodium (Colace) 100 mg Q12H PRN PO CONSTIPATION; Start 01/03/17 at 18: 30 Magnesium Hydroxide (Milk Of Mag) 30 ml DAILY PRN PO CONSTIPATION; Start at 18:30 Bisacodyl (Dulcolax Supp) 10 mg DAILY PRN [place] CONSTIPATION; Start 01/03/17 at 18 :30 Famotidine 20 mg 20 mg Q24H PO Last administered on 01/03/17 21:18; Admin Dose 20 MG; Start 01/03/17 at 21:00 Potassium Chloride/Dextrose/ Sod Cl (D5-NS + KCl 20 Meq) 1,000 ml @ 100 mls/hr Q10H IV Last administered on 01/04/17 11:05; Admin Dose 100 MLS/HR; Start 01/03/17 at 19:00 Procedures Procedures PROCEDURE: CT abdomen and pelvis with contrast. CLINICAL INDICATION: Left lower quadrant pain bloody diarrhea. TECHNIQUE: CT scan of the abdomen and pelvis without oral contrast was performed and is reconstructed at 2.5 mm contiguous axial intervals from the dome of the diaphragm to the inferior pubic rami.. The patient was scanned without intravenous contrast. Sagittal and coronal reformatted images were obtained from the axial source images. The calculated radiation dose measures 743 mGy centimeters. The CTDI measures 14 mGy. Individualized dose optimization technique was used for the performance of this exam. This included 1. Automated exposure control. 2. Adjustment of the mA and / or kV according to the patient's size. 3. Use of iterative reconstructed technique. COMPARISON: None. FINDINGS: The lung bases are clear of any infiltrate or nodule. No effusion is seen. There are coronary artery calcifications. The liver is of normal size, contour and attenuation with no mass or ductal dilatation. No gallstones are visualized. No splenic, adrenal or pancreatic abnormalities present. Kidneys are of normal size and contour. No hydronephrosis, calculus or masses seen. Ureters are of normal course and caliber with no stone. No bladder mass or stone is present. Atrophic postmenopausal uterus and ovaries are normal. There is no aneurysm. There are vascular calcifications. No adenopathy is present. No bowel mass or obstruction is present. There is concentric thickening of the wall of the distal descending colon and the transverse colon. There is no stranding of the surrounding fat. The appendix is normal. No phlegmon, ascites or pneumoperitoneum is visualized. The osseous structures are intact. IMPRESSION: No evidence of urolithiasis, obstructive uropathy, diverticulitis or appendicitis. Concentric thickening wall of distal descending colon and sigmoid. Rule out focal colitis. Vascular calcifications. .Slava Tran MD, MD Date Time Electronically viewed and signed by .Slava Tran MD, on 01/03/2017 16: 17 VARUN BISHOP Jan 04, 2017 11:20
[2017-01-04 15:00] VITALS: BP 130/58; RESP 20
[2017-01-04 20:44] VITALS: BP 138/74; RESP 18
[2017-01-04] MEDS: FAMOTIDINE 20 MG TAB PO SCH (20:58)
[2017-01-04] MEDS: ACETAMINOPHEN 325 MG TAB PO PRN (23:23)
[2017-01-05] MEDS: DIPHENHYDRAMINE 25 MG CAP PO PRN ×3 (00:55→17:11)
[2017-01-05 02:46] VITALS: BP 109/52; RESP 18
[2017-01-05] MEDS: metroNIDAZOLE 500 MG TAB PO SCH ×3 (05:49→20:03)
[2017-01-05 05:57] LABS: BASOPHIL # 0.1 10^3/ul (0.0-0.1); BASOPHILS % 0.4 % (0.0-2.0); EOSINOPHILS # 0.5 10^3/ul (0.0-0.5); HEMATOCRIT 31.5 % (37.0-47.0); HEMOGLOBIN 10.3 g/dl (12.0-16.0); LYMPHOCYTES # 3.2 10^3/ul (0.8-2.9); LYMPHOCYTES % 20.1 % (15.0-51.0); MEAN CORPUSCULAR HEMOGLOBIN 28.9 pg (29.0-33.0); MEAN CORPUSCULAR HGB CONC 32.7 g/dl (32.0-37.0); MEAN CORPUSCULAR VOLUME 88.2 fl (82.0-101.0); MEAN PLATELET VOLUME 11.3 fl (7.4-10.4); MONOCYTE # 1.2 10^3/ul (0.3-0.9); MONOCYTES % 7.8 % (0.0-11.0); NEUTROPHIL # 10.9 10^3/ul (1.6-7.5); NEUTROPHILS % 68.4 % (39.0-77.0); PLATELET COUNT 202 10^3/UL (140-415); RED BLOOD COUNT 3.57 10^6/ul (4.20-5.40); RED CELL DISTRIBUTION WIDTH 13.4 % (11.5-14.5); WHITE BLOOD COUNT 15.9 10^3/ul (4.8-10.8)
[2017-01-05 06:36] LABS: MAGNESIUM 1.5 mg/dl (1.7-2.5); PHOSPHORUS 2.6 mg/dl (2.5-4.9)
[2017-01-05 06:41] LABS: ALBUMIN/GLOBULIN RATIO 0.93; BILIRUBIN,INDIRECT 0.1 mg/dl (0-1.1); BILIRUBIN,TOTAL 0.1 mg/dl (0.2-1.3); CALCIUM 8.2 mg/dl (8.4-10.2); CREATININE 0.88 mg/dl (0.44-1.00); POTASSIUM 3.4 mmol/L (3.5-5.1); TOTAL PROTEIN 6.2 g/dl (6.1-8.1)
[2017-01-05 07:44] VITALS: BP 155/67; RESP 20
[2017-01-05] MEDS: FLUTICASONE 0.05% 16 GM NAS SPRAY NASAL SCH ×2 (09:06→20:00)
[2017-01-05] MEDS: LEVOTHYROXINE 88 MCG TAB PO SCH (09:07)
[2017-01-05] MEDS: ASCORBIC ACID 500 MG TAB PO SCH (09:07)
[2017-01-05] MEDS: CIPROFLOXACIN 400MG/D5W 200 ML IVPB SCH ×2 (09:07→20:00)
[2017-01-05] MEDS ORDERED: POTASSIUM CHLORIDE (SR) 20 MEQ TAB PO STA (09:31)
[2017-01-05] MEDS: ACETAMINOPHEN 325 MG TAB PO PRN ×2 (10:52→20:01)
[2017-01-05] MEDS ORDERED: MAGNESIUM SULFATE 4 GM/100 ML 100 ML IVPB ONE (11:00)
[2017-01-05] MEDS: D5-NS + KCL 20 MEQ 1,000 ML IV SCH ×3 (11:00→20:00)
[2017-01-05] MEDS: POLYETHYLENE GLYCOL 17 GM PACKET PO SCH (12:10)
[2017-01-05 14:55] VITALS: BP 135/63; RESP 20
[2017-01-05] MEDS: FAMOTIDINE 20 MG TAB PO SCH (20:01)
[2017-01-05 20:11] VITALS: BP 155/83; RESP 20
[2017-01-06 02:23] VITALS: BP 143/63; RESP 18
[2017-01-06] MEDS: ACETAMINOPHEN 325 MG TAB PO PRN ×2 (03:09→10:06)
[2017-01-06] MEDS: DIPHENHYDRAMINE 25 MG CAP PO PRN ×2 (04:01→10:06)
[2017-01-06] MEDS: metroNIDAZOLE 500 MG TAB PO SCH (05:01)
[2017-01-06] MEDS: D5-NS + KCL 20 MEQ 1,000 ML IV SCH (05:03)
[2017-01-06 05:43] LABS: BASOPHIL # 0.1 10^3/ul (0.0-0.1); BASOPHILS % 0.4 % (0.0-2.0); EOSINOPHILS # 0.4 10^3/ul (0.0-0.5); HEMATOCRIT 32.3 % (37.0-47.0); HEMOGLOBIN 10.3 g/dl (12.0-16.0); LYMPHOCYTES # 2.8 10^3/ul (0.8-2.9); LYMPHOCYTES % 19.8 % (15.0-51.0); MEAN CORPUSCULAR HEMOGLOBIN 28.5 pg (29.0-33.0); MEAN CORPUSCULAR HGB CONC 31.9 g/dl (32.0-37.0); MEAN CORPUSCULAR VOLUME 89.2 fl (82.0-101.0); MEAN PLATELET VOLUME 11.6 fl (7.4-10.4); MONOCYTE # 1.2 10^3/ul (0.3-0.9); MONOCYTES % 8.5 % (0.0-11.0); NEUTROPHIL # 9.6 10^3/ul (1.6-7.5); PLATELET COUNT 228 10^3/UL (140-415); RED BLOOD COUNT 3.62 10^6/ul (4.20-5.40); RED CELL DISTRIBUTION WIDTH 13.6 % (11.5-14.5); WHITE BLOOD COUNT 14.1 10^3/ul (4.8-10.8)
[2017-01-06 06:09] LABS: CALCIUM 7.8 mg/dl (8.4-10.2); CREATININE 0.84 mg/dl (0.44-1.00); POTASSIUM 4.3 mmol/L (3.5-5.1)
[2017-01-06 08:10] VITALS: BP 132/73; RESP 18
[2017-01-06] MEDS: LEVOTHYROXINE 88 MCG TAB PO SCH (08:37)
[2017-01-06] MEDS: CIPROFLOXACIN 400MG/D5W 200 ML IVPB SCH (08:38)
[2017-01-06] MEDS: ASCORBIC ACID 500 MG TAB PO SCH (08:38)
[2017-01-06] MEDS: FLUTICASONE 0.05% 16 GM NAS SPRAY NASAL SCH (08:38)
[2017-01-06] MEDS: POLYETHYLENE GLYCOL 17 GM PACKET PO SCH (08:38)
[2017-01-06] MEDS ORDERED: LEVOFLOXACIN 500 MG TAB PO SCH (10:30)
--- NOTE | 2017-01-06 10:36 | PN ---
Date/Time of Note Date/Time of Note DATE: 01/05/17 TIME: 10:27 Assessment/Plan VTE Prophylaxis VTE Prophylaxis Intervention: SCD's Lines/Catheters IV Catheter Type (from [facility]): Peripheral IV Assessment/Plan Assessment/Plan 76-year-old female with: 1. Acute colitis, sigmoid and descending colon per CAT scan finding and symptoms on presentation, patient tolerating full liquids, symptoms much improved and actually patient now complaints of constipation Scant bright red blood per rectum likely secondary to hemorrhoids. Hemoglobin stable. Continue abx and f/u stool studies 2. Hypertension: Continue current medications. 3. Hypothyroidism: Check thyroid function, continue Synthroid 4. Chronic sinusitis, status post ENT procedure, continue current medications Prophylaxis: SCDs for DVT prophylaxis, Pepcid for GI prophylaxis Disposition: change to po abx within 24 hrs and d/c plan within 24 to 48 hrs Subjective 24 Hr Interval Summary Free Text/Dictation Late entry, Progress Note from 01/05 Patient doing well, now reports some constipation and insist on getting Benadryl Q6 hrs for her sinus congestion post ENT procedure last week WBC trending down and much less abdo pain Exam/Review of Systems Vital Signs Vitals Vital Signs Date Time Temp Pulse Resp B/P Pulse Ox O2 Delivery O2 Flow Rate FiO2 01/06/17 08:10 98.0 87 18 132/73 100 01/03/17 19:15 Nasal Cannula 2.0 Intake and Output 01/05/17 01/05/17 01/06/17 15:00 23:00 07:00 Intake Total 200 ml 1780 ml 1480 ml Output Total 1200 ml Balance 200 ml 580 ml 1480 ml Exam Constitutional: alert, oriented, well developed Respiratory: clear to auscultation, normal air movement Cardiovascular: nl pulses, regular rate and rhythm Gastrointestinal: soft, tender (mild Lower abdo pain ) Musculoskeletal: nl extremities to inspection, nl gait and stance Extremities: normal pulses Neurological: BOX TOE BUFFER II-XII intact, nl mental status, nl speech, nl strength Results Result Diagram: 01/06/17 0443 01/06/17 0443 Results 24 hrs Laboratory Tests Test 01/05/17 20:30 01/06/17 04:43 Stool Occult Blood NEGATIVE White Blood Count 14.1 H Red Blood Count 3.62 L Hemoglobin 10.3 L Hematocrit 32.3 L Mean Corpuscular Volume 89.2 Mean Corpuscular Hemoglobin 28.5 L Mean Corpuscular Hemoglobin Concent 31.9 L Red Cell Distribution Width 13.6 Platelet Count 228 Mean Platelet Volume 11.6 H Neutrophils % 68.0 Lymphocytes % 19.8 Monocytes % 8.5 Eosinophils % 3.0 Basophils % 0.4 Nucleated Red Blood Cells % 0.0 Neutrophils # 9.6 H Lymphocytes # 2.8 Monocytes # 1.2 H Eosinophils # 0.4 Basophils # 0.1 Nucleated Red Blood Cells # 0.0 Sodium Level 140 Potassium Level 4.3 Chloride Level 112 H Carbon Dioxide Level 22 Anion Gap 10 Blood Urea Nitrogen 5 L Creatinine 0.84 Glucose Level 119 Calcium Level 7.8 L Magnesium Level 2.0 Medications Medications Current Medications Metronidazole (Flagyl) 500 mg Q8 PO Last administered on 01/06/17 05:01; Admin Dose 500 MG; Start 01/03/17 at 22:00 Acetaminophen/ Butalbital/ Caffeine (Fioricet) 1 tab Q6H PRN PO PAIN; Start at 18:30 Ascorbic Acid (Vitamin C) 1,000 mg DAILY PO Last administered on 01/06/17 08: 38; Admin Dose 1,000 MG; Start 01/04/17 at 09:00 Carvedilol (Coreg) 6.25 mg BID PO Last administered on 01/06/17 08:37; Admin Dose 6.25 MG; Start 01/03/17 at 21:00 Fluticasone Propionate (Flonase 0.05% Nasal) 1 spray BID NASAL Last administered on 01/06/17 08:38; Admin Dose 1 SPRAY; Start 01/03/17 at 21:00 Levothyroxine Sodium (Synthroid) 88 mcg DAILY PO Last administered on 08:37; Admin Dose 88 MCG; Start 01/04/17 at 09:00 Ondansetron HCl (Zofran Inj) 4 mg Q6H PRN IV NAUSEA AND/OR VOMITING; Start 01/03/17 at 18:30 Acetaminophen (Tylenol Tab) 650 mg Q6H PRN PO PAIN LEVEL 1-3 OR FEVER Last administered on 01/06/17 10:06; Admin Dose 650 MG; Start 01/03/17 at 18:30 Hydromorphone HCl (Dilaudid) 0.5 mg Q4H PRN IV SEVERE PAIN LEVEL 7-10 Last administered on 01/05/17 21:21; Admin Dose 0.5 MG; Start 01/03/17 at 18:30 Docusate Sodium (Colace) 100 mg Q12H PRN PO CONSTIPATION Last administered on 01/05/17 20:01; Admin Dose 100 MG; Start 01/03/17 at 18:30 Magnesium Hydroxide (Milk Of Mag) 30 ml DAILY PRN PO CONSTIPATION; Start at 18:30 Bisacodyl (Dulcolax Supp) 10 mg DAILY PRN IN CONSTIPATION; Start 01/03/17 at 18 :30 Famotidine (Pepcid) 20 mg Q24H PO Last administered on 01/05/17 20:01; Admin Dose 20 MG; Start 01/03/17 at 21:00 Diphenhydramine HCl (Benadryl) 25 mg Q6H PRN PO ITCHING Last administered on 10:06; Admin Dose 25 MG; Start 01/05/17 at 01:00 Polyethylene Glycol (Miralax) 17 gm DAILY PO Last administered on 01/05/17 12: 10; Admin Dose 17 GM; Start 01/05/17 at 11:00 Levofloxacin (Levaquin) 500 mg DAILY PO ; Start 01/06/17 at 10:30; Status VARUN TORRES Jan 06, 2017 10:36
--- NOTE | 2017-01-06 10:44 | PN ---
Date/Time of Note Date/Time of Note DATE: 01/06/17 TIME: 10:39 Assessment/Plan VTE Prophylaxis VTE Prophylaxis Intervention: SCD's Lines/Catheters IV Catheter Type (from Nrsg): Peripheral IV Assessment/Plan Assessment/Plan 76-year-old female with: 1. Acute colitis, sigmoid and descending colon per CAT scan finding and symptoms on presentation, patient tolerating full liquids, symptoms much improved and had BM last night, C diff neg and FOB negative, Hb stable Continue Levaquin + Flagyl for 8 more days 2. Hypertension: Continue current medications. 3. Hypothyroidism: Continue Synthroid 4. Chronic sinusitis, status post ENT procedure, continue current medications and needs f/u with her ENT physician [facility] this week Prophylaxis: SCDs for DVT prophylaxis, Pepcid for GI prophylaxis Disposition: D/c home today with f/u [facility] with ENT Subjective 24 Hr Interval Summary Free Text/Dictation Patient complaints mostly related to her Nose and recent ENT procedure She needs to go f/u with ENT [facility], no further need to be inpatient at this point Exam/Review of Systems Vital Signs Vitals Vital Signs Date Time Temp Pulse Resp B/P Pulse Ox O2 Delivery O2 Flow Rate FiO2 01/06/17 08:10 98.0 87 18 132/73 100 01/03/17 19:15 Nasal Cannula 2.0 Intake and Output 01/05/17 01/05/17 01/06/17 15:00 23:00 07:00 Intake Total 200 ml 1780 ml 1480 ml Output Total 1200 ml Balance 200 ml 580 ml 1480 ml Exam Constitutional: alert, oriented, well developed Cardiovascular: nl pulses, regular rate and rhythm Gastrointestinal: non-tender, soft Musculoskeletal: nl extremities to inspection, nl gait and stance Extremities: normal pulses, other (no edema, clubbing or cyanosis ) Neurological: FISH WORM GROWER II-XII intact, nl mental status, nl speech, nl strength Results Result Diagram: 01/06/17 0443 01/06/17442 Results 24 hrs Laboratory Tests Test 01/05/17 20:30 01/06/17 04:43 Stool Occult Blood NEGATIVE White Blood Count 14.1 H Red Blood Count 3.62 L Hemoglobin 10.3 L Hematocrit 32.3 L Mean Corpuscular Volume 89.2 Mean Corpuscular Hemoglobin 28.5 L Mean Corpuscular Hemoglobin Concent 31.9 L Red Cell Distribution Width 13.6 Platelet Count 228 Mean Platelet Volume 11.6 H Neutrophils % 68.0 Lymphocytes % 19.8 Monocytes % 8.5 Eosinophils % 3.0 Basophils % 0.4 Nucleated Red Blood Cells % 0.0 Neutrophils # 9.6 H Lymphocytes # 2.8 Monocytes # 1.2 H Eosinophils # 0.4 Basophils # 0.1 Nucleated Red Blood Cells # 0.0 Sodium Level 140 Potassium Level 4.3 Chloride Level 112 H Carbon Dioxide Level 22 Anion Gap 10 Blood Urea Nitrogen 5 L Creatinine 0.84 Glucose Level 119 Calcium Level 7.8 L Magnesium Level 2.0 Medications Medications Current Medications Metronidazole (Flagyl) 500 mg Q8 PO Last administered on 01/06/17 05:01; Admin Dose 500 MG; Start 01/03/17 at 22:00 Acetaminophen/ Butalbital/ Caffeine (Fioricet) 1 tab Q6H PRN PO PAIN; Start at 18:30 Ascorbic Acid (Vitamin C) 1,000 mg DAILY PO Last administered on 01/06/17 08: 38; Admin Dose 1,000 MG; Start 01/04/17 at 09:00 Carvedilol (Coreg) 6.25 mg BID PO Last administered on 01/06/17 08:37; Admin Dose 6.25 MG; Start 01/03/17 at 21:00 Fluticasone Propionate (Flonase 0.05% Nasal) 1 spray BID NASAL Last administered on 01/06/17 08:38; Admin Dose 1 SPRAY; Start 01/03/17 at 21:00 Levothyroxine Sodium (Synthroid) 88 mcg DAILY PO Last administered on 08:37; Admin Dose 88 MCG; Start 01/04/17 at 09:00 Ondansetron HCl (Zofran Inj) 4 mg Q6H PRN IV NAUSEA AND/OR VOMITING; Start 01/03/17 at 18:30 Acetaminophen (Tylenol Tab) 650 mg Q6H PRN PO PAIN LEVEL 1-3 OR FEVER Last administered on 01/06/17 10:06; Admin Dose 650 MG; Start 01/03/17 at 18:30 Hydromorphone HCl (Dilaudid) 0.5 mg Q4H PRN IV SEVERE PAIN LEVEL 7-10 Last administered on 10/3/17at 21:21; Admin Dose 0.5 MG; Start 01/03/17 at 18:30 Docusate Sodium (Colace) 100 mg Q12H PRN PO CONSTIPATION Last administered on 01/05/17 20:01; Admin Dose 100 MG; Start 01/03/17 at 18:30 Magnesium Hydroxide (Milk Of Mag) 30 ml DAILY PRN PO CONSTIPATION; Start at 18:30 Bisacodyl (Dulcolax Supp) 10 mg DAILY PRN SC CONSTIPATION; Start 01/03/17 at 18 :30 Famotidine (Pepcid) 20 mg Q24H PO Last administered on 01/05/17 20:01; Admin Dose 20 MG; Start 01/03/17 at 21:00 Diphenhydramine HCl (Benadryl) 25 mg Q6H PRN PO ITCHING Last administered on 10:06; Admin Dose 25 MG; Start 01/05/17 at 01:00 Polyethylene Glycol (Miralax) 17 gm DAILY PO Last administered on 01/05/17 12: 10; Admin Dose 17 GM; Start 01/05/17 at 11:00 Levofloxacin (Levaquin) 500 mg DAILY PO ; Start 01/06/17 at 10:30; Status UNV VARUN BISHOP Jan 06, 2017 10:44
--- NOTE | 2017-01-06 10:48 | PDOCDIS ---
Discharge Instructions CONDITION Patient Condition: Stable HOME CARE INSTRUCTIONS: Special Diet: Soft diet ACTIVITY: Activity Restrictions: No Restrictions FOLLOW UP/APPOINTMENTS Follow-up Plan Follow up with PCP within 1 week Referral to GI outpatient vs Gen surgery re hemorrhoids s/p episode of hemorrhoidal bleed Follow up with ENT, post procedure follow up VARUN WALDEN Jan 06, 2017 10:48
[2017-01-06] MEDS ORDERED: LEVO500T72 PO (10:49)
[2017-01-06] MEDS ORDERED: METR500T PO (10:49)
[2017-01-06] MEDS ORDERED: POLY17PO6 PO (11:07)
== END 2017-01-06 16:10 | disposition home or self-care (01) | DRG 392 ==
LOC: E/R 13:29 → PP2 18:22 → OBSVTOIN 01-05 10:09
PROVIDERS: ADMIT Internal Medicine; ATTEND Internal Medicine
DX: K52.9 Noninfective gastroenteritis and colitis, unspecified (principal); I10 Essential (primary) hypertension; E03.9 Hypothyroidism, unspecified; J32.9 Chronic sinusitis, unspecified
CPT/HCPCS: 74177; 80048; 80053; 82270; 83690; 83735; 84100; 84439; 84443; 85025; 87045; 87075; 87081; 87177; 96374; 96375; G0378; J0744; J1170; J2405; J3480; J7030; Q9967